=== PATIENT | female | born 1960 | race Caucasian/White ===

== ENCOUNTER 2017-09-06 09:30 | Day surgery (SDC) | payer OTHER ==
[2017-09-06] MEDS ORDERED: FENTAnyl 50 MCG/ML VIAL (12:53)
[2017-09-06 12:55] LABS: ADD MAN DIFF? NO
[2017-09-06 12:58] LABS: BASOPHIL # 0.1 10^3/ul (0.0-0.1); BASOPHILS % 1.2 % (0.0-2.0); EOSINOPHILS # 0.1 10^3/ul (0.0-0.5); EOSINOPHILS % 1.9 % (0.0-7.0); HEMATOCRIT 39.4 % (37.0-47.0); HEMOGLOBIN 13.5 g/dl (12.0-16.0); LYMPHOCYTES # 2.3 10^3/ul (0.8-2.9); LYMPHOCYTES % 46.9 % (15.0-51.0); MEAN CORPUSCULAR HEMOGLOBIN 32.6 pg (29.0-33.0); MEAN CORPUSCULAR HGB CONC 34.3 g/dl (32.0-37.0); MEAN CORPUSCULAR VOLUME 95.2 fl (82.0-101.0); MEAN PLATELET VOLUME 12.2 fl (7.4-10.4); MONOCYTE # 0.4 10^3/ul (0.3-0.9); MONOCYTES % 8.2 % (0.0-11.0); NEUTROPHILS % 41.6 % (39.0-77.0); PLATELET COUNT 143 10^3/UL (140-415); RED BLOOD COUNT 4.14 10^6/ul (4.20-5.40); RED CELL DISTRIBUTION WIDTH 13.1 % (11.5-14.5)
[2017-09-06 12:58] LABS: WHITE BLOOD COUNT 4.9 10^3/ul (4.8-10.8)
[2017-09-06] MEDS ORDERED: DEXAMETHASONE 4 MG/ML 1 ML INJ (13:44)
[2017-09-06] MEDS ORDERED: ROPIVACAINE 0.5 % 30 ML VIAL (14:41)
[2017-09-06] MEDS ORDERED: POLYMYXIN/BACITRACIN 1L IRRIG ×2 (14:41)
[2017-09-06] MEDS: LIDOCAINE 1% (MPF) 30 ML INJ (14:55)
[2017-09-06] MEDS ORDERED: NALOXONE (0.4 MG/ML) INJ IV (15:00)
== END 2017-09-06 16:55 | disposition home or self-care (01) ==
LOC: SDS 09:30
DX: M65.4 Radial styloid tenosynovitis [de Quervain] (principal)
CPT/HCPCS: 25000; 71045; 85025; 93005